=== PATIENT | male | born 1965 | race Caucasian/White ===

== ENCOUNTER 2016-08-06 08:55 | Emergency (ER) | payer MEDICAID ==
[~2016-08-06] VITALS: Ht 175.3 cm; Wt 59.3 kg
[2016-08-06 09:26] VITALS: BP 132/74
== END 2016-08-06 09:31 | disposition home or self-care (01) ==
LOC: ED 09:25
DX: B86 Scabies (principal)
CPT/HCPCS: 99283; Q0177

== ENCOUNTER 2016-08-12 05:42 | Emergency (ER) | payer MEDICAID ==
[~2016-08-12] VITALS: Ht 175.3 cm; Wt 60.3 kg
[2016-08-12 05:43] VITALS: BP 155/91
[2016-08-12] MEDS ORDERED: BACITRACIN ZINC OINT 500U/GM, 0.9 GM ONE (06:03)
== END 2016-08-12 06:15 ==
LOC: ED 06:10
DX: L03.116 Cellulitis of left lower limb (principal); L03.115 Cellulitis of right lower limb; F17.200 Nicotine dependence, unspecified, uncomplicated
CPT/HCPCS: 99283

== ENCOUNTER 2020-07-07 20:19 | Inpatient (IN) | payer MEDICAID, OTHER ==
[~2020-07-07] VITALS: Ht 175.3 cm; Wt 58.5 kg
[2020-07-07] MEDS ORDERED: SODIUM CHLORIDE 0.9% 1,000ML IVBOLUS ONE (21:30)
[2020-07-07] MEDS ORDERED: VANCOMYCIN PER PHARMACY MC ONE (21:30)
[2020-07-07] MEDS ORDERED: VANCOMYCIN PMX 1GM/200ML 200 ML IV ONE (21:30)
--- NOTE | 2020-07-07 21:33 | NUR ---
TASK RN: IV started, labs and culture #1 drawn. Pt afebrile at 98.5 orally. Hypertensive, hooked up to groundwater monitoring technician, on continuous pulse ox. Lab at bedside.
--- NOTE | 2020-07-07 21:42 | NUR ---
TASK RN: 2 sets of blood cultures have been drawn. Vancomycin started per eMAR
[2020-07-07 22:05] LABS: ALANINE AMINOTRANSFERASE 59 U/L (12-78); ALBUMIN 2.3 g/dL (3.4-5.0); ANION GAP 7 mmol/L (5-15); CALCIUM 8.3 mg/dL (8.5-10.1); CHLORIDE 99 mmol/L (98-107); CREATININE 1.96 mg/dL (0.7-1.3)
[2020-07-07 22:07] LABS: ALKALINE PHOSPHATASE 148 U/L (45-117); BILIRUBIN,TOTAL 0.6 mg/dL (0.2-1.0); TOTAL PROTEIN 6.7 g/dL (6.4-8.2)
[2020-07-07 22:14] LABS: BASOPHILS % (AUTO) 0 % (0-1); EOSINOPHILS % (AUTO) 1 % (1-7); LYMPHOCYTES % (AUTO) 11 % (22-44); MEAN CORPUSCULAR HEMOGLOBIN 28.6 pg (27.5-34.5); MEAN CORPUSCULAR HGB CONC 33.7 g/dL (33.2-36.2); MEAN PLATELET VOLUME 7.4 fL (7.4-10.4); MONOCYTES % (AUTO) 21 % (2-9); NEUTROPHILS % (AUTO) 67 % (42-75); PLATELET COUNT 201 x10^3/uL (130-400); RED BLOOD COUNT 4.62 x10^6/uL (4.38-5.82); RED CELL DISTRIBUTION WIDTH 14.9 % (9.4-14.8)
[2020-07-07] MEDS ORDERED: hydrALAzine 20 MG/ML, 1ML ONE (22:54)
[2020-07-07] MEDS ORDERED: hydrALAzine 20 MG/ML, 1ML IV ONE (23:00)
[2020-07-07 23:05] LABS: MD SCAN
--- NOTE | 2020-07-07 23:06 | NUR ---
Pt remains HTN. EDP awrare, and medication ordered. Pt medicated per order. Will monitor. Decision made to admit patient. Will monitor.
[2020-07-07] MEDS ORDERED: AMPICILLIN/SULBACTAM 3 GM in SODIUM CHLORIDE 0.9% 100 ML IV ONE (23:30)
[2020-07-07] MEDS ORDERED: ENALAPRILAT 1.25 MG/ML, 2ML IV ONE (23:30)
[2020-07-07] MEDS ORDERED: ENALAPRILAT 1.25 MG/ML, 1ML ONE (23:50)
[2020-07-08] VITALS (8 sets, daily range): BP systolic 153–194; BP diastolic 84–102
[2020-07-08] MEDS ORDERED: MELATONIN 5 MG TABLET PO PRN
[2020-07-08] MEDS ORDERED: ENOXAPARIN 60 MG/0.6 ML SQ SCH
[2020-07-08] MEDS ORDERED: morphine SULFATE 10 MG/ML, 1ML IVPush PRN
[2020-07-08] MEDS ORDERED: PHARMACY MAY ADJ FOR RENAL FX MC PRN
[2020-07-08] MEDS ORDERED: ACETAMINOPHEN 325 MG TABLET PO PRN
[2020-07-08] MEDS ORDERED: ONDANSETRON 2MG/ML, 2ML IVPush PRN
[2020-07-08] MEDS ORDERED: VANCOMYCIN PER PHARMACY MC PRN
--- NOTE | 2020-07-08 00:10 | NUR ---
Pt medicated per order for HTN. Pt BP tredning down slowly. Continues to have HTN. PT A&O, in no distress. Pt denies CP or SOB. Pt has no complaints. pt with no OCONNOR. Report called to Gale WILKINS.
[2020-07-08] MEDS: LABETALOL 5MG/ML, 20ML IVPush PRN (00:56)
[2020-07-08] MEDS: NICOTINE 14MG/24 HR PATCH.TD24 TD SCH ×2 (00:58→23:32)
[2020-07-08] MEDS ORDERED: PHARMACOKINETIC MONITORING MC PRN (01:00)
[2020-07-08] MEDS ORDERED: PHARMACOKINETIC CONSULTATION MC ONE (01:00)
[2020-07-08] MEDS ORDERED: POTASSIUM CHLORIDE 20 MEQ TAB.ER.PRT PO ONE (05:30)
[2020-07-08 06:09] LABS: BASOPHILS % (AUTO) 0 % (0-1); EOSINOPHILS % (AUTO) 1 % (1-7); LYMPHOCYTES % (AUTO) 13 % (22-44); MEAN CORPUSCULAR HEMOGLOBIN 28.4 pg (27.5-34.5); MEAN CORPUSCULAR HGB CONC 33.5 g/dL (33.2-36.2); MEAN PLATELET VOLUME 7.2 fL (7.4-10.4); MONOCYTES % (AUTO) 19 % (2-9); NEUTROPHILS % (AUTO) 68 % (42-75); PLATELET COUNT 194 x10^3/uL (130-400); RED BLOOD COUNT 4.51 x10^6/uL (4.38-5.82); RED CELL DISTRIBUTION WIDTH 14.7 % (9.4-14.8)
[2020-07-08 06:18] LABS: ANION GAP 9 mmol/L (5-15); CHLORIDE 101 mmol/L (98-107)
[2020-07-08 06:25] LABS: CHOL/HDL RATIO 3.8; CHOLESTEROL, TOTAL 114 mg/dL (140-239); CREATININE 1.76 mg/dL (0.7-1.3); HDL CHOL % 26 % (26-37); HDL CHOLESTEROL (DIRECT) 30 mg/dL (40-60); LDL CHOLESTEROL,CALCULATED 66 mg/dL (54-169); LDL/HDL RATIO 2.2 (0.5-3.0); TRIGLYCERIDES 88 mg/dL (50-200); VLDL CHOLESTEROL 18 mg/dL (0-25)
[2020-07-08 06:48] LABS: MD SCAN
[2020-07-08] MEDS: AMPICILLIN/SULBACTAM 3 GM in SODIUM CHLORIDE 0.9% 100 ML IV SCH ×3 (07:28→23:32)
[2020-07-08] MEDS: SENNA/DOCUSATE TABLET PO SCH (07:36)
[2020-07-08] MEDS: ENOXAPARIN 60 MG/0.6 ML SQ SCH (16:27)
[2020-07-08] MEDS ORDERED: VANCOMYCIN PMX 1GM/200ML 200 ML IV SCH (18:00)
[2020-07-08] MEDS: VANCOMYCIN PMX 1GM/200ML 200 ML IV SCH (18:06)
[2020-07-09] VITALS (8 sets, daily range): BP systolic 151–176; BP diastolic 79–107
[2020-07-09] MEDS: LABETALOL 5MG/ML, 20ML IVPush PRN ×2 (02:57→15:13)
[2020-07-09 06:50] LABS: BASOPHILS % (AUTO) 0 % (0-1); EOSINOPHILS % (AUTO) 2 % (1-7); LYMPHOCYTES % (AUTO) 15 % (22-44); MEAN CORPUSCULAR HEMOGLOBIN 28.2 pg (27.5-34.5); MEAN CORPUSCULAR HGB CONC 33.2 g/dL (33.2-36.2); MEAN PLATELET VOLUME 7.1 fL (7.4-10.4); MONOCYTES % (AUTO) 14 % (2-9); NEUTROPHILS % (AUTO) 69 % (42-75); PLATELET COUNT 226 x10^3/uL (130-400); RED BLOOD COUNT 4.09 x10^6/uL (4.38-5.82); RED CELL DISTRIBUTION WIDTH 14.6 % (9.4-14.8)
[2020-07-09 07:01] LABS: ALBUMIN 1.9 g/dL (3.4-5.0); ANION GAP 6 mmol/L (5-15); CALCIUM 8.3 mg/dL (8.5-10.1); CHLORIDE 103 mmol/L (98-107)
[2020-07-09 07:02] LABS: CREATININE 1.74 mg/dL (0.7-1.3)
[2020-07-09] MEDS: AMPICILLIN/SULBACTAM 3 GM in SODIUM CHLORIDE 0.9% 100 ML IV SCH ×3 (07:25→23:56)
[2020-07-09] MEDS: SENNA/DOCUSATE TABLET PO SCH (07:27)
[2020-07-09 07:29] LABS: MD SCAN
[2020-07-09] MEDS: ENOXAPARIN 60 MG/0.6 ML SQ SCH ×2 (09:39→20:00)
[2020-07-09] MEDS: VANCOMYCIN PMX 1GM/200ML 200 ML IV SCH (17:45)
[2020-07-09] MEDS: NICOTINE 14MG/24 HR PATCH.TD24 TD SCH (23:56)
[2020-07-10] VITALS (10 sets, daily range): BP systolic 142–195; BP diastolic 84–108
[2020-07-10] MEDS: LABETALOL 5MG/ML, 20ML IVPush PRN ×2 (01:27→03:25)
[2020-07-10 05:40] LABS: ANION GAP 7 mmol/L (5-15); BASOPHILS % (AUTO) 0 % (0-1); CALCIUM 8.2 mg/dL (8.5-10.1); CHLORIDE 104 mmol/L (98-107); EOSINOPHILS % (AUTO) 3 % (1-7); LYMPHOCYTES % (AUTO) 16 % (22-44); MD NO; MEAN CORPUSCULAR HEMOGLOBIN 28.3 pg (27.5-34.5); MEAN CORPUSCULAR HGB CONC 33.2 g/dL (33.2-36.2); MEAN PLATELET VOLUME 7.2 fL (7.4-10.4); MONOCYTES % (AUTO) 13 % (2-9); NEUTROPHILS % (AUTO) 68 % (42-75); PLATELET COUNT 295 x10^3/uL (130-400); RED BLOOD COUNT 4.07 x10^6/uL (4.38-5.82); RED CELL DISTRIBUTION WIDTH 14.7 % (9.4-14.8)
[2020-07-10] MEDS ORDERED: LABETALOL 5MG/ML, 20ML IVPush PRN (07:30)
[2020-07-10] MEDS: METOPROLOL SUCCINATE 50 MG TAB.ER.24H PO SCH (07:59)
[2020-07-10] MEDS: AMLODIPINE 10 MG TAB PO SCH (07:59)
[2020-07-10] MEDS: AMPICILLIN/SULBACTAM 3 GM in SODIUM CHLORIDE 0.9% 100 ML IV SCH ×3 (07:59→23:24)
[2020-07-10] MEDS: ENOXAPARIN 60 MG/0.6 ML SQ SCH (08:00)
[2020-07-10] MEDS: SENNA/DOCUSATE TABLET PO SCH (09:00)
[2020-07-10] MEDS: NICOTINE 14MG/24 HR PATCH.TD24 TD SCH (23:24)
[2020-07-11 03:25] VITALS: BP 165/87
[2020-07-11 04:58] LABS: BASOPHILS % (AUTO) 1 % (0-1); EOSINOPHILS % (AUTO) 3 % (1-7); LYMPHOCYTES % (AUTO) 13 % (22-44); MEAN CORPUSCULAR HEMOGLOBIN 28.3 pg (27.5-34.5); MEAN CORPUSCULAR HGB CONC 33.5 g/dL (33.2-36.2); MEAN PLATELET VOLUME 6.8 fL (7.4-10.4); MONOCYTES % (AUTO) 10 % (2-9); NEUTROPHILS % (AUTO) 74 % (42-75); PLATELET COUNT 358 x10^3/uL (130-400); RED BLOOD COUNT 4.31 x10^6/uL (4.38-5.82); RED CELL DISTRIBUTION WIDTH 14.7 % (9.4-14.8)
[2020-07-11 05:12] LABS: ANION GAP 7 mmol/L (5-15); CALCIUM 8.1 mg/dL (8.5-10.1); CHLORIDE 104 mmol/L (98-107)
[2020-07-11] MEDS: METOPROLOL SUCCINATE 50 MG TAB.ER.24H PO SCH (05:19)
[2020-07-11 06:06] LABS: MD SCAN
[2020-07-11] MEDS: AMPICILLIN/SULBACTAM 3 GM in SODIUM CHLORIDE 0.9% 100 ML IV SCH ×3 (08:27→21:56)
[2020-07-11] MEDS: AMLODIPINE 10 MG TAB PO SCH (08:27)
[2020-07-11] MEDS: SENNA/DOCUSATE TABLET PO SCH (08:27)
[2020-07-11] MEDS: HEPARIN 5,000 UNITS/ML, 1ML SQ SCH ×2 (08:28→21:55)
[2020-07-11 09:36] VITALS: BP 152/76
[2020-07-11 12:36] VITALS: BP 166/93
[2020-07-11 19:35] VITALS: BP 145/76
[2020-07-11] MEDS: NICOTINE 14MG/24 HR PATCH.TD24 TD SCH (21:55)
[2020-07-12 02:21] VITALS: BP 166/89
[2020-07-12] MEDS: AMPICILLIN/SULBACTAM 3 GM in SODIUM CHLORIDE 0.9% 100 ML IV SCH (05:27)
[2020-07-12] MEDS ORDERED: METOPROLOL SUCCINATE 50 MG TAB.ER.24H PO SCH (06:00)
[2020-07-12 06:12] LABS: CALCIUM 8.4 mg/dL (8.5-10.1); CHLORIDE 105 mmol/L (98-107)
[2020-07-12 06:13] LABS: BASOPHILS % (AUTO) 1 % (0-1); EOSINOPHILS % (AUTO) 3 % (1-7); LYMPHOCYTES % (AUTO) 13 % (22-44); MEAN CORPUSCULAR HEMOGLOBIN 28.3 pg (27.5-34.5); MEAN CORPUSCULAR HGB CONC 34.5 g/dL (33.2-36.2); MEAN PLATELET VOLUME 6.7 fL (7.4-10.4); MONOCYTES % (AUTO) 11 % (2-9); NEUTROPHILS % (AUTO) 73 % (42-75); PLATELET COUNT 419 x10^3/uL (130-400); RED BLOOD COUNT 4.34 x10^6/uL (4.38-5.82); RED CELL DISTRIBUTION WIDTH 14.7 % (9.4-14.8)
[2020-07-12 06:16] LABS: ANION GAP 8 mmol/L (5-15); CREATININE 1.79 mg/dL (0.7-1.3)
[2020-07-12 06:57] LABS: MD MORPH REVIEW ONLY; OVALOCYTES 1+
[2020-07-12 06:58] LABS: TEAR DROPS 1+
[2020-07-12 06:59] LABS: <PLATELET ESTIMATE> INCREASED; <PLT MORPHOLOGY> NORMAL PLT MORPH
[2020-07-12 07:03] VITALS: BP 164/87
[2020-07-12] MEDS: SENNA/DOCUSATE TABLET PO SCH (09:00)
[2020-07-12] MEDS: AMLODIPINE 10 MG TAB PO SCH (09:14)
[2020-07-12] MEDS: HEPARIN 5,000 UNITS/ML, 1ML SQ SCH (09:15)
[2020-07-12 13:21] LABS: HCT (SEDRATE) 37.2 % (39.2-51.8)
[2020-07-12 13:26] VITALS: BP 137/74
== END 2020-07-12 15:21 | disposition left against medical advice (07) | DRG 871 ==
LOC: ED 20:49 → EDIP 23:38 → 4EST 07-08 00:34
PROVIDERS: ADMIT Family Medicine; ATTEND Internal Medicine
DX: A41.9 Sepsis, unspecified organism (principal); E43 Unspecified severe protein-calorie malnutrition; N17.0 Acute kidney failure with tubular necrosis; L03.116 Cellulitis of left lower limb; D68.59 Other primary thrombophilia; E87.1 Hypo-osmolality and hyponatremia; I82.502 Chronic embolism and thrombosis of unspecified deep veins of left lower extremity; Z68.1 Body mass index [BMI] 19.9 or less, adult; F17.200 Nicotine dependence, unspecified, uncomplicated; E87.6 Hypokalemia; E86.1 Hypovolemia; I12.9 Hypertensive chronic kidney disease with stage 1 through stage 4 chronic kidney disease, or unspecified chronic kidney disease; N18.9 Chronic kidney disease, unspecified; Z79.01 Long term (current) use of anticoagulants; Z82.3 Family history of stroke; Z53.29 Procedure and treatment not carried out because of patient's decision for other reasons
CPT/HCPCS: 36415; 76770; 80048; 80053; 80061; 80069; 83605; 83735; 84145; 85025; 85651; 86140; 87040; 93005; 93922; 96365; 96367; 96375; 99285; G0378; J0295; J1644; J1650; J3370; J0360; J7030

== ENCOUNTER 2020-07-14 18:46 | Inpatient (IN) | payer SELFPAY ==
[~2020-07-14] VITALS: Ht 175.3 cm; Wt 57.6 kg
--- NOTE | 2020-07-14 19:13 | NUR ---
PT STATES HE WAS HERE LAST WEEK FROM SUN-SUN FOR ABX THERAPY FOR LLE CELLULITUS. PT STATES HE HAD TO LEAVE AMA D/T MOVING SUNDAY. PT ABLE TO BEAR WEIGHT. + PEDAL PULSES. TBS. WILL CTM. CALL LIGHT INREACH.
[2020-07-14] MEDS ORDERED: SODIUM CHLORIDE FLUSH 10ML SYR IVF ONE (19:30)
[2020-07-14 19:50] LABS: MEAN CORPUSCULAR HEMOGLOBIN 27.8 pg (27.5-34.5); MEAN CORPUSCULAR HGB CONC 32.6 g/dL (33.2-36.2); MEAN PLATELET VOLUME 6.2 fL (7.4-10.4); PLATELET COUNT 445 x10^3/uL (130-400); RED BLOOD COUNT 4.15 x10^6/uL (4.38-5.82); RED CELL DISTRIBUTION WIDTH 14.6 % (9.4-14.8)
[2020-07-14 20:01] LABS: ALBUMIN 2.4 g/dL (3.4-5.0); ANION GAP 6 mmol/L (5-15); CALCIUM 8.7 mg/dL (8.5-10.1); CHLORIDE 108 mmol/L (98-107); CREATININE 2.92 mg/dL (0.7-1.3)
[2020-07-14 20:14] LABS: MD YES
[2020-07-14 20:17] LABS: EOS#(MANUAL) 0.54 x10^3/uL (0.0-0.4); EOS% (MANUAL) 3 % (1-7); LYMPH#(MANUAL) 1.61 x10^3/uL (1-3.4); LYMPHS% (MANUAL) 9 % (22-44); MONOS#(MANUAL) 1.61 x10^3/uL (0.3-2.7); MONOS% (MANUAL) 9 % (2-9); SEG#(MANUAL) 14.14 x10^3/uL (1.8-6.8); SEGS% (MANUAL) 79 % (42-75)
[2020-07-14 20:18] LABS: <PLATELET ESTIMATE> INCREASED; <PLT MORPHOLOGY> NORMAL PLT MORPH
[2020-07-14 20:20] LABS: ANISOCYTOSIS 1+; MICROCYTOSIS 1+
--- NOTE | 2020-07-14 21:34 | NUR ---
PT AWARE OF PLAN TO ADMIT. DENIES ANY NEEDS. WILL CTM.
[2020-07-14] MEDS ORDERED: OXYcodone IR 5MG TABLET PO PRN (22:30)
[2020-07-14] MEDS ORDERED: POLYETHYLENE GLYCOL 17 GM PACKET PO PRN (22:30)
[2020-07-14] MEDS ORDERED: PROMETHAZINE 25 MG/ML, 1ML IM PRN (22:30)
[2020-07-14] MEDS ORDERED: BISACODYL 10 MG SUPP PR PRN (22:30)
[2020-07-14] MEDS ORDERED: VANCOMYCIN PER PHARMACY MC PRN (22:30)
[2020-07-14] MEDS ORDERED: ONDANSETRON 2MG/ML, 2ML IVPush PRN (22:30)
[2020-07-14] MEDS ORDERED: ACETAMINOPHEN 325 MG TABLET PO PRN (22:30)
[2020-07-14] MEDS ORDERED: DOCUSATE 100 MG CAPSULE PO PRN (22:30)
[2020-07-14] MEDS ORDERED: VANCOMYCIN PMX 1GM/200ML 200 ML IV ONE (22:30)
[2020-07-14] MEDS ORDERED: SODIUM CHLORIDE 0.9% 1,000 ML IV SCH (22:30)
[2020-07-14] MEDS ORDERED: ONDANSETRON ODT 4 MG PO PRN (22:30)
[2020-07-14 22:51] VITALS: BP 184/90
[2020-07-14] MEDS ORDERED: VANCOMYCIN 1,300 MG in SODIUM CHLORIDE 0.9% 250 ML IV ONE (23:30)
[2020-07-14] MEDS ORDERED: PHARMACOKINETIC MONITORING MC PRN (23:30)
[2020-07-14] MEDS: ERTAPENEM 0.5 GM in SODIUM CHLORIDE 0.9% 50 ML IV SCH (23:44)
[2020-07-14] MEDS: HEPARIN 5,000 UNITS/ML, 1ML SQ SCH (23:44)
[2020-07-15 00:42] VITALS: BP 166/89
[2020-07-15 05:28] LABS: BASOPHILS % (AUTO) 1 % (0-1); EOSINOPHILS % (AUTO) 3 % (1-7); LYMPHOCYTES % (AUTO) 20 % (22-44); MEAN CORPUSCULAR HEMOGLOBIN 27.6 pg (27.5-34.5); MEAN CORPUSCULAR HGB CONC 32.3 g/dL (33.2-36.2); MEAN PLATELET VOLUME 6.4 fL (7.4-10.4); MONOCYTES % (AUTO) 14 % (2-9); NEUTROPHILS % (AUTO) 62 % (42-75); PLATELET COUNT 452 x10^3/uL (130-400); RED BLOOD COUNT 4.01 x10^6/uL (4.38-5.82); RED CELL DISTRIBUTION WIDTH 14.4 % (9.4-14.8)
[2020-07-15 05:43] LABS: CHLORIDE 109 mmol/L (98-107)
[2020-07-15 06:02] LABS: ALANINE AMINOTRANSFERASE 55 U/L (12-78); ALBUMIN 2.2 g/dL (3.4-5.0); ALKALINE PHOSPHATASE 111 U/L (45-117); ANION GAP 7 mmol/L (5-15); BILIRUBIN,TOTAL 0.2 mg/dL (0.2-1.0); CHOL/HDL RATIO 3.8; CHOLESTEROL, TOTAL 144 mg/dL (140-239); HDL CHOL % 26 % (26-37); HDL CHOLESTEROL (DIRECT) 38 mg/dL (40-60); LDL CHOLESTEROL,CALCULATED 92 mg/dL (54-169); LDL/HDL RATIO 2.4 (0.5-3.0); TOTAL PROTEIN 6.7 g/dL (6.4-8.2); TRIGLYCERIDES 72 mg/dL (50-200); VLDL CHOLESTEROL 14 mg/dL (0-25)
[2020-07-15 06:06] LABS: HCT (SEDRATE) 34.3 % (39.2-51.8)
[2020-07-15 06:07] LABS: MD SCAN
[2020-07-15] MEDS: HEPARIN 5,000 UNITS/ML, 1ML SQ SCH ×3 (06:47→23:26)
[2020-07-15] MEDS ORDERED: GADOTERATE 7.5 MMOL/15ML SYR ONE (07:32)
[2020-07-15 08:02] VITALS: BP 173/98
[2020-07-15] MEDS: hydrALAzine 20 MG/ML, 1ML IVPush PRN (08:30)
[2020-07-15 12:08] VITALS: BP 145/89
[2020-07-15] MEDS ORDERED: VANCOMYCIN 1,300 MG in SODIUM CHLORIDE 0.9% 250 ML IV ONE (13:00)
[2020-07-15 14:47] LABS: AMPHETAMINE SCREEN, URINE Positive (Negative); BARBITURATE SCREEN, URINE Negative (Negative); BENZODIAZEPINE SCREEN, URINE Negative (Negative); CANNABINOID SCREEN, URINE Positive (Negative); COCAINE SCREEN, URINE Negative (Negative); METHADONE SCREEN, URINE Negative (Negative); OPIATE SCREEN, URINE Negative (Negative)
[2020-07-15 19:38] VITALS: BP 155/84
[2020-07-15] MEDS: ERTAPENEM 0.5 GM in SODIUM CHLORIDE 0.9% 50 ML IV SCH (23:25)
[2020-07-16 02:02] VITALS: BP 163/86
[2020-07-16 06:37] VITALS: BP 181/95
[2020-07-16] MEDS: HEPARIN 5,000 UNITS/ML, 1ML SQ SCH ×2 (08:31→17:53)
[2020-07-16 13:06] VITALS: BP 129/74
[2020-07-16 19:25] VITALS: BP 149/88
[2020-07-16 19:32] VITALS: BP 152/105
[2020-07-16] MEDS ORDERED: VANCOMYCIN PMX 1GM/200ML 200 ML IV ONE (20:00)
[2020-07-16] MEDS ORDERED: ERTAPENEM 1 GM in SODIUM CHLORIDE 0.9% 50 ML IV SCH (23:00)
[2020-07-17 01:11] VITALS: BP 163/97
[2020-07-17] MEDS: HEPARIN 5,000 UNITS/ML, 1ML SQ SCH ×4 (01:25→23:46)
[2020-07-17 05:50] LABS: BASOPHILS % (AUTO) 1 % (0-1); EOSINOPHILS % (AUTO) 4 % (1-7); LYMPHOCYTES % (AUTO) 27 % (22-44); MEAN CORPUSCULAR HEMOGLOBIN 28.6 pg (27.5-34.5); MEAN CORPUSCULAR HGB CONC 33.4 g/dL (33.2-36.2); MEAN PLATELET VOLUME 6.7 fL (7.4-10.4); MONOCYTES % (AUTO) 12 % (2-9); NEUTROPHILS % (AUTO) 56 % (42-75); PLATELET COUNT 481 x10^3/uL (130-400); RED BLOOD COUNT 4.06 x10^6/uL (4.38-5.82); RED CELL DISTRIBUTION WIDTH 14.4 % (9.4-14.8)
[2020-07-17 05:54] LABS: CHLORIDE 111 mmol/L (98-107)
[2020-07-17 06:01] LABS: ALANINE AMINOTRANSFERASE 34 U/L (12-78); ALBUMIN 2.2 g/dL (3.4-5.0); ALKALINE PHOSPHATASE 98 U/L (45-117); ANION GAP 7 mmol/L (5-15); BILIRUBIN,TOTAL 0.2 mg/dL (0.2-1.0); CALCIUM 8.4 mg/dL (8.5-10.1); CREATININE 1.98 mg/dL (0.7-1.3); TOTAL PROTEIN 6.9 g/dL (6.4-8.2)
[2020-07-17 06:16] LABS: MD SCAN
[2020-07-17 07:24] VITALS: BP 173/98
[2020-07-17] MEDS: hydrALAzine 20 MG/ML, 1ML IVPush PRN (07:42)
[2020-07-17 12:41] VITALS: BP 139/80
[2020-07-17] MEDS ORDERED: CEFAZOLIN 2,000 MG in SODIUM CHLORIDE 0.9% 50 ML IV SCH (13:30)
[2020-07-17] MEDS: CEFAZOLIN PMX 2GM/50ML 50 ML IVPB SCH ×2 (16:13→23:46)
[2020-07-17 19:39] VITALS: BP 139/96
[2020-07-18 02:08] VITALS: BP 158/99
[2020-07-18 03:21] VITALS: BP 138/96
[2020-07-18 07:07] VITALS: BP 179/102
[2020-07-18] MEDS: hydrALAzine 20 MG/ML, 1ML IVPush PRN (07:12)
[2020-07-18 07:32] LABS: BASOPHILS % (AUTO) 0 % (0-1); EOSINOPHILS % (AUTO) 4 % (1-7); LYMPHOCYTES % (AUTO) 25 % (22-44); MEAN CORPUSCULAR HEMOGLOBIN 28.7 pg (27.5-34.5); MEAN CORPUSCULAR HGB CONC 33.6 g/dL (33.2-36.2); MEAN PLATELET VOLUME 6.3 fL (7.4-10.4); MONOCYTES % (AUTO) 11 % (2-9); NEUTROPHILS % (AUTO) 60 % (42-75); PLATELET COUNT 526 x10^3/uL (130-400); RED BLOOD COUNT 4.29 x10^6/uL (4.38-5.82); RED CELL DISTRIBUTION WIDTH 14.7 % (9.4-14.8)
[2020-07-18 07:37] LABS: MD NO
[2020-07-18 07:42] LABS: ALANINE AMINOTRANSFERASE 31 U/L (12-78); ALBUMIN 2.3 g/dL (3.4-5.0); ANION GAP 7 mmol/L (5-15); CALCIUM 8.6 mg/dL (8.5-10.1); CHLORIDE 107 mmol/L (98-107); CREATININE 2.02 mg/dL (0.7-1.3)
[2020-07-18 07:49] LABS: ALKALINE PHOSPHATASE 99 U/L (45-117); BILIRUBIN,TOTAL 0.1 mg/dL (0.2-1.0); TOTAL PROTEIN 7.2 g/dL (6.4-8.2)
[2020-07-18 08:34] LABS: HCT (SEDRATE) 36.7 % (39.2-51.8)
[2020-07-18] MEDS: HEPARIN 5,000 UNITS/ML, 1ML SQ SCH ×2 (08:50→16:58)
[2020-07-18] MEDS: CEFAZOLIN PMX 2GM/50ML 50 ML IVPB SCH ×2 (08:50→15:26)
[2020-07-18 13:03] VITALS: BP 128/80
[2020-07-18 19:25] VITALS: BP 132/76
[2020-07-19] MEDS: CEFAZOLIN PMX 2GM/50ML 50 ML IVPB SCH ×2 (00:03→08:02)
[2020-07-19] MEDS: HEPARIN 5,000 UNITS/ML, 1ML SQ SCH ×2 (00:03→08:03)
[2020-07-19 00:37] VITALS: BP 162/90
[2020-07-19 05:51] LABS: ALANINE AMINOTRANSFERASE 16 U/L (12-78); ALBUMIN 2.3 g/dL (3.4-5.0); ANION GAP 6 mmol/L (5-15); BASOPHILS % (AUTO) 1 % (0-1); CHLORIDE 108 mmol/L (98-107); CREATININE 2.11 mg/dL (0.7-1.3); EOSINOPHILS % (AUTO) 4 % (1-7); LYMPHOCYTES % (AUTO) 26 % (22-44); MEAN CORPUSCULAR HEMOGLOBIN 28.4 pg (27.5-34.5); MEAN CORPUSCULAR HGB CONC 33.6 g/dL (33.2-36.2); MEAN PLATELET VOLUME 6.7 fL (7.4-10.4); MONOCYTES % (AUTO) 11 % (2-9); NEUTROPHILS % (AUTO) 58 % (42-75); PLATELET COUNT 539 x10^3/uL (130-400); RED BLOOD COUNT 4.05 x10^6/uL (4.38-5.82); RED CELL DISTRIBUTION WIDTH 14.5 % (9.4-14.8)
[2020-07-19 05:56] LABS: HCT (SEDRATE) 34.6 % (39.2-51.8)
[2020-07-19 06:00] LABS: ALKALINE PHOSPHATASE 84 U/L (45-117); BILIRUBIN,TOTAL 0.2 mg/dL (0.2-1.0)
[2020-07-19 06:14] LABS: MD SCAN
[2020-07-19 06:58] VITALS: BP 160/90
[2020-07-19 13:07] VITALS: BP 175/102
[2020-07-19] MEDS ORDERED: CEPH-376 PO (13:08)
[2020-07-19] MEDS ORDERED: AMLO5TAB4 PO (13:25)
== END 2020-07-19 14:58 | disposition home or self-care (01) | DRG 871 ==
LOC: ED 20:35 → EDIP 21:10 → 3N 22:44 → DCLOUNGE 07-19 14:51
PROVIDERS: ADMIT Internal Medicine; ATTEND Internal Medicine
DX: A41.9 Sepsis, unspecified organism (principal); E43 Unspecified severe protein-calorie malnutrition; L03.116 Cellulitis of left lower limb; N17.9 Acute kidney failure, unspecified; B86 Scabies; F15.10 Other stimulant abuse, uncomplicated; F17.210 Nicotine dependence, cigarettes, uncomplicated; I12.9 Hypertensive chronic kidney disease with stage 1 through stage 4 chronic kidney disease, or unspecified chronic kidney disease; I87.2 Venous insufficiency (chronic) (peripheral); N18.30 Chronic kidney disease, stage 3 unspecified; Z79.01 Long term (current) use of anticoagulants; Z82.3 Family history of stroke; Z91.19 Patient's noncompliance with other medical treatment and regimen; Z86.718 Personal history of other venous thrombosis and embolism; F12.10 Cannabis abuse, uncomplicated; E74.39 Other disorders of intestinal carbohydrate absorption
CPT/HCPCS: 36415; 80048; 80053; 80061; 80202; 80307; 82040; 83036; 83605; 83735; 84100; 84145; 84443; 85025; 85651; 86140; 86480; 86705; 86706; 86803; 87040; 87340; 87806; G0378; J0690; J1335; J1644; J3370; A9575; G0475; J0360; J7030; J7050